=== PATIENT | male | born 1980 | race Two or more races ===

== ENCOUNTER 2016-12-27 11:44 | Inpatient (IN) | payer OTHER ==
[2016-12-27 14:28] VITALS: BMI 26.4
--- NOTE | 2016-12-27 15:50 | HP ---
Admission [facility] Chief Complaint: REHAB TX FOR OPIOID DEPENDENCE Allergies/Adverse Reactions: Allergies Allergy/AdvReac Type Severity Reaction Status Date / Time No Known Allergies Allergy Verified 12/27/16 15:45 History of Present Illness: 36 Y/O H/M WITH A HX OF HEROIN DEPENDENCE SEEKING REHAB TX. PT WAS REFERRED FROM HIS OUT PATIENT TREATMENT [facility] ON [address] [place] [address] CONTACT: NURIS WEINBERG([phone]). FIRST TIME HERE. Exam Limitations: No Limitations - Ebola screening Have you traveled outside of the country in the last 21 days: No Have you had contact with anyone from an Ebola affected area: No Have you been sick,other than usual withdrawal symptoms: No Do you have a fever: No - Review of Systems Constitutional: Chills, Night Sweats, Changes in sleep EENT: reports: Blurred Vision, Dental Problems (MISSING TEETH) Respiratory: reports: No Symptoms reported Cardiac: reports: Lightheadedness GI: reports: Poor Fluid Intake : reports: No Symptoms Reported Musculoskeletal: reports: Joint Pain (LEFT ANKLE PAIN DUE TO FX 3 WEEKS AGO. WENT TO [facility] FOR CARE.) Integumentary: reports: No Symptoms Reported Neuro: reports: Headache, Unsteady Gait (USIND CANE FOR AMBULATION), Dizziness Endocrine: reports: No Symptoms Reported Hematology: reports: No Symptoms Reported Psychiatric: reports: Orientated x3, Anxious Other Systems: Reviewed and Negative Patient History - Patient Medical History Hx Anemia: No Hx Asthma: No Hx Cardiac Disorders: No Hx Hypertension: No Hx Hypercholesterolemia: No HX Cerebrovascular Accident: No Hx Seizures: No Hx Diabetes: No Hx Gastrointestinal Disorders: No Hx Genitourinary Disorders: No Hx Sexually Transmitted Disorders: No Hx Renal Disease (ESRD): No Hx Thyroid Disease: No Hx Human Immunodeficiency Virus (HIV): No (NEGATIVE HX) Hx Hepatitis C: No Hx Depression: Yes (ON MEDS) Hx Suicide Attempt: No (DENIES) Hx Bipolar Disorder: Yes Hx Schizophrenia: No - Patient Surgical History Past Surgical History: Yes Hx Neurologic Surgery: No Hx Cataract Extraction: No Hx Cardiac Surgery: No Hx Lung Surgery: No Hx Breast Surgery: No Hx Breast Biopsy: No Hx Abdominal Surgery: No Hx Appendectomy: Yes (AT 8 YRS OLD) Anesthesia Reaction: No - PPD History Previous Implant?: Yes Documented Results: Negative w/o proof Implanted On Prior [facility] Admission?: No PPD to be Administered?: Yes - Reproductive History Patient is a Female of Child Bearing Age (11 -55 yrs old): No (MALE) Patient : (N/A) - Smoking Cessation Smoking history: Current every day smoker Have you smoked in the past 12 months: Yes Aproximately how many cigarettes per day: 10 Hx Chewing Tobacco Use: No Initiated information on smoking cessation: Yes 'Breaking Loose' booklet given: 12/27/16 - Substance & Tx. History Hx Alcohol Use: No (DENIES) Hx Substance Use: Yes (HEROIN) Substance Use Type: Heroin Hx Substance Use Treatment: Yes (LAST TX AT [facility] IN [place]) - Substances Abused Heroin Route: Inhalation Frequency: 1-2 times per week Amount used: 2-3 BAGS Age of first use: 23 Date of Last Use: 12/23/16 Family Disease History - Family Disease History Family History: Denies Admission Physical Exam [facility] - Vital Signs Vital Signs: Vital Signs - 24 hr 12/27/16 14:27 Temperature 97.4 F L Pulse Rate 62 Respiratory 20 Rate Blood Pressure 132/78 - Physical General Appearance: Yes: No Apparent Distress, Anxious HEENTM: Yes: EOMI, Normocephalic, FELISA, Pharynx Normal Respiratory: Yes: Chest Non-Tender, Lungs Clear, Normal Breath Sounds, No Respiratory Distress Neck: Yes: No masses,lesions,Nodules, Supple, Trachea in good position Breast: Yes: Breast Exam Deferred Cardiology: Yes: Regular Rhythm, Regular Rate, S1, S2 Abdominal: Yes: Normal Bowel Sounds, Non Tender, Soft Genitourinary: Yes: Other (N/C) Back: Yes: Within Normal Limits Musculoskeletal: Yes: full range of Motion, Gait Steady Extremities: Yes: Normal Range of Motion, Swelling (LEFT ANKLE S/P FRACTURE 3 WEEKS AGO.) Neurological: Yes: utility porter II-XII NML intact, Fully Oriented, Alert, Motor Strength 5/5 Integumentary: Yes: Dry, Warm Lymphatic: Yes: Within Normal Limits - Diagnostic (1) Opioid dependence with withdrawal Current Visit: Yes Status: Chronic (2) Fracture of left ankle Current Visit: Yes Status: Acute Qualifiers: Encounter type: subsequent encounter Cleared for Admission [facility] - Detox or Rehab Claeared for Rehab Admission: Yes [facility] Breath Alcohol Content Breath Alcohol Content: 0 Urine Drug Screen - Results Drug Screen Negative: No Urine Drug Screen Results: OPI-Opiates
[2016-12-27] MEDS ORDERED: IBUPROFEN 400 MG TABLET (FP) PO PRN (15:59)
[2016-12-27] MEDS ORDERED: MAG HYDROX/AL HYDROX/SIMETH 30 ML UNIT-DOSE CUP PO PRN (15:59)
[2016-12-27] MEDS ORDERED: P-EPHED 60MG/TRIPROLIDI 2.5MG TABLET PO PRN (15:59)
[2016-12-27] MEDS ORDERED: LOPERAMIDE HCL 2 MG CAPSULE PO PRN (15:59)
[2016-12-27] MEDS ORDERED: diphenhydrAMINE HCL 50 MG CAPSULE PO PRN (15:59)
[2016-12-27] MEDS ORDERED: hydrOXYzine PAMOATE 25 MG CAPSULE (FP) PO PRN (15:59)
[2016-12-27] MEDS ORDERED: MAGNESIUM CITRATE 300 ML BOTTLE PO PRN (15:59)
[2016-12-27] MEDS ORDERED: MAGNESIUM HYDROX 2400MG/30ML ORAL SUSPENSION 30 ML CUP PO PRN (15:59)
[2016-12-27] MEDS ORDERED: MENTHOL/PHENOL 1 EACH UD MM PRN (15:59)
[2016-12-27] MEDS ORDERED: ACETAMINOPHEN 325 MG TABLET (FP) PO PRN (15:59)
[2016-12-27] MEDS ORDERED: NICOTINE POLACRILEX 2 MG GUM BC PRN (15:59)
[2016-12-27] MEDS ORDERED: guaiFENesin/D-METHORPHAN HB 10 ML UNIT-DOSE CUPS PO PRN (15:59)
[2016-12-27] MEDS: NICOTINE 14 MG/24 HOURS TOPICAL PATCH TD SCH (19:08)
[2016-12-27] MEDS ORDERED: TUBERCULIN PPD 5 TU/0.1ML VIAL ID ONE (19:35)
[2016-12-27] MEDS ORDERED: MIRTAZAPINE 15 MG TABLET (FP) PO SCH (22:00)
[2016-12-27] MEDS ORDERED: THIAMINE HCL 100 MG TABLET (FP) PO SCH (22:00)
[2016-12-28 07:25] VITALS: BP 139/83; PULSE 63; TEMP 98.3
[2016-12-28] MEDS ORDERED: PRENATAL VITAMINS W/ FOLIC ACID TABLET (FP) PO SCH (10:00)
[2016-12-28] MEDS: NICOTINE 14 MG/24 HOURS TOPICAL PATCH TD SCH (11:18)
--- NOTE | 2016-12-28 11:54 | HP ---
Psychiatrist Admission - Data Date of interview: 12/28/16 Admission source: [facility] Identifying data: This is the first 5N inpatient rehabilitation admission for this 36 year old sHispanic male, residing with his family in [facility], he is unemployed on PA. Medical History: Patient reports fracturing his left ankle 3 weeks ago, smokes cigarettes 10 a day. Psychiatric History: Patient reports saw the psychiatrist at [facility](Dr.Iris Sin) who diagnosed him with anxiety and depression and prescribed Remeron 45 mg po hs, Klonopin 1 mg po tid and Ambien 10 mg po hs , (but urine tox positive only for opioids). Reports no history of psychiatric hospitalization. Physical/Sexual Abuse/Trauma History: denies Vital Signs: Vital Signs - 24 hr 12/27/16 12/27/16 12/28/16 14:27 20:47 03:30 Temperature 97.4 F L 98.4 F Pulse Rate 62 58 L Respiratory 20 18 18 Rate Blood Pressure 132/78 133/79 12/28/16 07:24 Temperature 98.3 F Pulse Rate 63 Respiratory 18 Rate Blood Pressure 139/83 Allergies/Adverse Reactions: Allergies Allergy/AdvReac Type Severity Reaction Status Date / Time No Known Allergies Allergy Verified 12/27/16 15:45 Date of last physical exam: 12/27/16 Concur with the findings of this exam: Yes - Substance Abuse/Tx History Hx Alcohol Use: No Hx Substance Use: Yes Substance Use Type: Heroin (2-3 bags aday) Hx Substance Use Treatment: Yes - Admission Criteria Previous failed treatment: Yes Poor recovery environment: Yes Comorbidities: Yes Lacks judgement: Yes Mental Status Exam - Mental Status Exam Alert and Oriented to: Time, Place, Person Cognitive Function: Grossly Intact Patient Appearance: Unkempt Mood: Sad Affect: Appropriate, Mood Congruent Patient Behavior: Appropriate, Cooperative Speech Pattern: Clear, Appropriate Voice Loudness: Normal Thought Process: Intact, Goal Oriented Thought Disorder: Not Present Hallucinations: Denies Suicidal Ideation: Denies Homicidal Ideation: Denies Insight/Judgement: Fair Sleep: Poorly, Difficulty falling asleep Appetite: Fair Muscle strength/Tone: Normal Gait/Station: Normal Psychiatric Findings - Problem List (Alpha 1, 2,3) (1) Opioid dependence with withdrawal Current Visit: Yes Status: Chronic - Initial Treatment Plan Initial Treatment Plan: continue Remeron, discussed indications and properties of Belsomra for indomnia, patient agreed to start it, will monitor progress sas needed.
--- NOTE | 2016-12-28 11:59 | PN ---
[facility] Progress Note Note: patient reported that he is leaving AMA, states he can't stay here without smoking and also misses his daughter, encouraged to focus on his treatment but adamant to leave, stable for AMA d/c.
[2016-12-28 13:08] LABS: MCH 29.5 pg (25.7-33.7); WHITE BLOOD COUNT 5.5 K/mm3 (4.0-10.0)
[2016-12-28 13:11] LABS: MCHC 32.1 g/dl (32.0-35.9); MEAN CELL VOLUME 91.9 fl (80-96); MEAN PLT VOLUME 8.5 fl (7.5-11.1); PLATELET COUNT 215 K/MM3 (134-434); RDW 15.2 % (11.9-15.9)
[2016-12-28 13:38] LABS: ALBUMIN 3.5 g/dl (3.4-5.0); ALK PHOS 75 U/L (45-117); ANION GAP 7 (8-16); BILIRUBIN,TOTAL 1.1 mg/dL (0.2-1.0); CALCIUM 9.1 mg/dL (8.5-10.1); CO2 28 mmol/L (21-32); CREATININE 0.9 mg/dL (0.7-1.3); GLUCOSE,RANDOM 83 mg/dL (74-106); SGOT/AST 10 U/L (15-37); SGPT/ALT 18 U/L (12-78); TOT PROT 6.9 g/dl (6.4-8.2)
[2016-12-28 13:52] LABS: SICKLE CELL SCREEN NEGATIVE (NEGATIVE)
--- NOTE | 2016-12-28 14:50 | EKG ---
Test Reason : Blood Pressure : / mmHG Vent. Rate : 052 BPM Atrial Rate : 052 BPM P-R Int : 160 ms QRS Dur : 098 ms QT Int : 432 ms P-R-T Axes : 037 058 047 degrees QTc Int : 401 ms SINUS BRADYCARDIA EARLY REPOLARIZATION OTHERWISE NORMAL ECG NO PREVIOUS ECGS AVAILABLE Confirmed by HIPOLITO GAMBOA MD ([id number]) on 12/28/2016 2:49:51 PM Referred By: Confirmed By:HIPOLITO GAMBOA MD
[2016-12-28] MEDS ORDERED: SUVOREXANT 10 MG TABLET PO SCH (22:00)
== END 2016-12-28 11:00 | disposition left against medical advice (07) | DRG 770 ==
LOC: YASAS 11:44 → Y5N 17:29
PROVIDERS: ADMIT Psychiatry & Neurology Psychiatry; ATTEND Psychiatry & Neurology Psychiatry
PROC: HZ42ZZZ Group Counseling for Substance Abuse Treatment, Cognitive-Behavioral (ICD-10-PCS; principal; 2016-12-27)
DX: F11.20 Opioid dependence, uncomplicated (principal); F39 Unspecified mood [affective] disorder
CPT/HCPCS: 36415; 80053; 85027; 85660; 86593; 93005; 93010